=== PATIENT | male | born 1965 | race Caucasian/White ===

== ENCOUNTER → 2016-11-05 | Outpatient (CLI) | payer BC ==
[~2016-11-05] MED LIST: ASPIR 8181 M1 PO; ATENOLOL 25 MG25 M1 PO; ATENOLOL PO; CALICUM 500+D1 EACH PO; NAPROSYN500 MG PO; PRAVACHOL20 MG PO; PROTONIX 20 MG20 M1 PO; SYNTHROID137 MCG; VIAGRA100 MG PO; VITAMIN D1000 UNIT PO; WELCHOL 625 MG625 MG PO
--- NOTE | ~2016-11-05 | CNG ---
[facility] [place] [address] CYTO-NONGYN REPORT PROCEDURE Name: DAVIN HIRSCH Room #: [facility] [id number] Admission: 11/05/16 Date of : 65 Discharge: Report #: [id number] Path Case #: [id number] CYTOPATHOLOGY REPORT COLLECTION DATE: 11/05/2016 RECEIVED DATE: 11/05/2016 SUBMITTING PHYS: Dr. Dale Garvin OTHER PHYS: Dr. Jinny Crowder CLINICAL HISTORY: Right parotid nodule; Parotid Cyst SPECIMEN(S) RECEIVED: A.Fine needle aspiration, Right parotid * * * * * * * * * * * * FINAL DIAGNOSIS: Fine needle aspiration, designated "right parotid": - Scattered lymphocytes and rare epithelioid-appearing cells (see comment). (CLW:kasandra; 11/06/2016) COMMENT: Cytomorphological examination shows scattered predominantly small lymphocytes with rare lymphoid tangles. Rare epithelioid-appearing cells are also noted. No markedly atypical cells are identified. The ThinPrep and cell block are very paucicellular and essentially acellular. The findings may represent a sampled lymph node. The patient's history of thyroid cancer is noted. Clinical and radiographic correlation is required. Rail Car Loader slides are co-reviewed with Dr. Melissa Frederick. (CLW:kasandra; 11/06/2016) PATHOLOGIST: Ruth Lyons M.D. REPORT ELECTRONICALLY SIGNED BY: Ruth Lyons M.D. DATE/TIME: 11/06/2016 21:55 * * * * * * * * * * * * GROSS PATHOLOGY: A. Fine needle aspiration, Right parotid: The specimen is labeled "Davin Hirsch" and consists of one fixed slide, one air dried slide. Seventeen mL of clear colorless fluid in fixative from the needle rinse is also submitted and one ThinPrep slide and an alcohol fixed cell block were prepared from this material. RNA retain vial received. (mm 11.05.2016) WORLD GEOGRAPHY TEACHER(S): BELLA Sol(ASCP) INITIAL CPT CODE(S): [facility] [place] [address] CYTO-NONGYN REPORT PROCEDURE Name: DAVIN HIRSCH [id number]: 11/05/16 Date of : 65 Discharge: Report #: [id number] Path Case #: [id number]; [id number] Professional services performed by [facility] at [facility] [address], [place] [address] [facility] performed by [facility] at [address] [place] [address]., [address], [place] [address]. [address], [address] [place] [address] PHONE: [phone] DIRECTOR: Cody Meza M.D. * * * END OF REPORT * * *
== END ==
LOC: CAT 08:19
DX: K11.6 Mucocele of salivary gland (principal)

== ENCOUNTER 2016-11-15 15:06 | Emergency (ER) | payer BC ==
[~2016-11-15] VITALS: Ht 182.9 cm; Wt 95.3 kg
--- NOTE | ~2016-11-15 | EKG ---
[place] [address] [facility] [place] [address] ELECTROCARDIOGRAM REPORT Name: MEREDITHBROOKS Tre [id number] Admission: 11/15/16 Attend Phys: Discharge: 11/15/16 Date of : 65 Report #: [id number] THIS REPORT FOR: //name// [facility] ED Test Date: 2016-11-15 Test Time: 15:39:48 Pat Name: BROOKS HARPRE Department: Room: Gender: Waiter/Waitress Cabin Class: JLAMBERTZ : 1965 Requested By: Den Peng Order Number: [id number] MD: Ricki Moreno Measurements Intervals [place] Rate: 90 P: 32 ID: [id number] QRS: 47 QRSD: 102 T: 36 QT: 378 QTc: 463 Interpretive Statements Sinus rhythm Baseline wander in lead(s) V2 Compared to ECG 07/30/2016 04:36:02 Atrial fibrillation no longer present Left anterior fascicular block no longer present Electronically Signed On 11-16-2016 10:53:21 CDT by Ricki Moreno [email or web address] <ELECTRONICALLY SIGNED> By: Ricki Moreno MD 11/16/16 1053 [id number] Ricki Moreno MD /SARAY
[2016-11-15 15:46] LABS: HEMATOCRIT 46.5 % (42.0-52.0); HEMOGLOBIN 16.1 gm/dL (14.0-18.0); MCHC 34.6 g/dL (28.0-37.0); RBC 5.54 mil/uL (4.50-6.00); RDW 13.9 % (10.5-14.5); WBC 8.9 thou/uL (4.0-11.0)
[2016-11-15 15:50] LABS: CALCIUM 8.2 mg/dL (8.5-10.1); CREATININE 1.1 mg/dL (0.7-1.3); MAGNESIUM 1.9 mg/dL (1.8-2.4); POTASSIUM 3.6 mmol/L (3.5-5.1)
== END 2016-11-15 17:44 | disposition home or self-care (01) ==
LOC: ER 15:06
PROVIDERS: Emergency Medicine
DX: R00.2 Palpitations (principal); K21.9 Gastro-esophageal reflux disease without esophagitis; I10 Essential (primary) hypertension; E78.00 Pure hypercholesterolemia, unspecified; G47.30 Sleep apnea, unspecified; F10.99 Alcohol use, unspecified with unspecified alcohol-induced disorder